=== PATIENT | male | born 1960 | race Caucasian/White ===

== ENCOUNTER 2019-10-08 09:34 | Emergency (ER) | payer MEDICARE, BC ==
[~2019-10-08] VITALS: Ht 185.4 cm; Wt 97.3 kg
[2019-10-08 09:38] VITALS: BP 156/82
[2019-10-08] MEDS ORDERED: predniSONE 20 mg tablet PO ONE (11:40)
[2019-10-08] MEDS ORDERED: ipratropium/albuterol 3ml nebule NEB ONE (11:40)
[2019-10-08] MEDS ORDERED: PRED20TA PO (11:42)
[2019-10-08] MEDS ORDERED: AZIT250T83 PO (11:42)
[2019-10-08] MEDS ORDERED: BENZ-16 PO (11:42)
== END 2019-10-08 12:39 | disposition home or self-care (01) ==
LOC: ER 09:35
DX: J20.9 Acute bronchitis, unspecified (principal); G89.29 Other chronic pain; Z88.6 Allergy status to analgesic agent; Z91.040 Latex allergy status; Z79.899 Other long term (current) drug therapy
CPT/HCPCS: 71045; 94640; 99283; J7512; 94760

== ENCOUNTER 2019-10-10 15:31 | Emergency (ER) | payer MEDICARE, BC ==
[~2019-10-10] VITALS: Ht 185.4 cm; Wt 102.3 kg
[~2019-10-10 15:31] MED LIST: AZIT250T83 PO; BENZ-16 PO; PRED20TA PO
[2019-10-10 15:54] VITALS: BP 122/76
[2019-10-10] MEDS ORDERED: DOXY100C76 PO (16:18)
[2019-10-10] MEDS ORDERED: AZIT250T83 PO (16:18)
== END 2019-10-10 16:35 | disposition home or self-care (01) ==
LOC: ER 15:33
DX: J45.909 Unspecified asthma, uncomplicated (principal); G89.29 Other chronic pain; Z98.890 Other specified postprocedural states; Z88.6 Allergy status to analgesic agent; Z91.040 Latex allergy status; Z79.2 Long term (current) use of antibiotics; Z79.899 Other long term (current) drug therapy
CPT/HCPCS: 99283